=== PATIENT | female | born 1985 | race American Indian/Alaskan Native ===

== ENCOUNTER 2021-04-24 05:45 | Emergency (ER) | payer OTHER ==
[2021-04-24] MEDS ORDERED: ZIPRASIDONE MESYLATE 20 MG VIAL IM ONE (05:47)
--- NOTE | 2021-04-24 05:57 | Emergency Department Report ---
HPI - HPI HPI: This is a 35-year-old -[place] Citizen female presents to the emergency department via EMS from home, which she shares with a friend/roommate, for a mental health evaluation. The patient is also escorted by PD. The patient is exhibiting acute psychosis. She comes into the emergency department singing and sometimes yelling very loudly, with tangential, rambling, nonsensical thoughts and speech. The patient is not redirectable. Her roommate told EMS that the patient has a history of bipolar disorder and she has not been taking her medication. Previous records show that I saw this patient 1 time previously in April of last year for similar odd behavior, acute psychosis, and the patient was transferred to a psychiatric facility. The patient is a poor historian secondary to her current condition. ED Past Medical Hx - Social History Smoking Status: Unknown if ever smoked - Medications Home Medications: Home Medications Medication Instructions Recorded Confirmed Last Taken Type Nitrofurantoin [place]/M-Cryst 100 mg PO Q12HR #12 capsule 04/23/20 Unknown Rx [Macrobid CAP] ED Review of Systems ROS: Stated complaint: MH EVAL Other details as noted in HPI Comment: Unobtainable due to pts medical conditions Physical Exam - Physical Exam Physical Exam: GENERAL: The patient is well-developed well-nourished. HENT: Normocephalic. Atraumatic. Patient has moist mucous membranes. EYES: Extraocular motions are intact. NECK: Supple. Trachea is midline. CHEST/LUNGS: Clear to auscultation. There is no respiratory distress noted. HEART/CARDIOVASCULAR: Regular. There is no tachycardia. There is no murmur. ABDOMEN: Abdomen is soft, nontender. Patient has normal bowel sounds. There is no abdominal distention. SKIN: Skin is warm and dry. NEURO: The patient is awake but confused. Normal gait. Not following commands due to psychosis. No obvious focal or lateralizing deficits. MUSCULOSKELETAL: There is no tenderness or deformity. There is no limitation range of motion. PSYCH: Exhibiting acute psychosis. Singing and/or yelling very loudly. Rambling, tangential, nonsensical thought pattern and speech. ED Course - Reevaluation(s) Reevaluation #1: 04/24/21 05:54 The patient is agitated, singing/yelling, is unable to follow commands and is not redirectable. She was given a dose of Geodon for treatment of her acute psychosis. ED Medical Decision Making - Lab Data Result diagrams: 04/24/21 08:18 04/24/21 16:43 Lab Results 04/24/21 04/24/21 04/24/21 Range/Units 08:17 08:17 08:18 WBC 7.6 (4.5-11.0) K/mm3 RBC 4.21 (3.65-5.03) M/mm3 Hgb 13.6 (10.1-14.3) gm/dl Hct 38.8 (30.3-42.9) % MCV 92 (79-97) fl MCH 32 (28-32) pg MCHC 35 H (30-34) % RDW 14.2 (13.2-15.2) % Plt Count 251 (140-440) K/mm3 Lymph % (Auto) 39.6 H (13.4-35.0) % [place] % (Auto) 10.5 H (0.0-7.3) % Eos % (Auto) 0.9 (0.0-4.3) % Baso % (Auto) 0.1 (0.0-1.8) % Lymph # (Auto) 3.0 (1.2-5.4) K/mm3 [place] # (Auto) 0.8 (0.0-0.8) K/mm3 Eos # (Auto) 0.1 (0.0-0.4) K/mm3 Baso # (Auto) 0.0 (0.0-0.1) K/mm3 Seg Neutrophils % 48.9 (40.0-70.0) % Seg Neutrophils # 3.7 (1.8-7.7) K/mm3 Sodium 139 (137-145) mmol/L Potassium 3.2 L (3.6-5.0) mmol/L Chloride 102.9 (98-107) mmol/L Carbon Dioxide 22 (22-30) mmol/L Anion Gap 17 mmol/L BUN 14 (7-17) mg/dL Creatinine 0.8 (0.6-1.2) mg/dL Estimated GFR > 60 ml/min BUN/Creatinine Ratio 18 % Glucose 120 H (65-100) mg/dL Calcium 9.1 (8.4-10.2) mg/dL Magnesium (1.7-2.3) mg/dL Total Creatine Kinase (30-135) units/L HCG, Qual (Negative) Urine Color (Yellow) Urine Turbidity (Clear) Urine pH (5.0-7.0) Ur Specific [place] (1.003-1.030) Urine Protein (Negative) mg/dL Urine Glucose (UA) (Negative) mg/dL Urine Ketones (Negative) mg/dL Urine Blood (Negative) Urine Nitrite (Negative) Urine Bilirubin (Negative) Urine Urobilinogen (<2.0) mg/dL Ur Leukocyte Esterase (Negative) Urine WBC (Auto) (0.0-6.0) /HPF Urine RBC (Auto) (0.0-6.0) /HPF U Epithel Cells (Auto) (0-13.0) /HPF Urine Bacteria (Auto) (Negative) /HPF Urine Mucus /HPF Salicylates (2.8-20.0) mg/dL Urine Opiates Screen Urine Methadone Screen Acetaminophen (10.0-30.0) ug/mL Ur Barbiturates Screen Ur Phencyclidine Scrn Ur Amphetamines Screen U Benzodiazepines Scrn Urine Cocaine Screen U Marijuana (THC) Screen Drugs of Abuse Note Plasma/Serum Alcohol < 0.01 (0-0.07) % Coronavirus (PCR) (Negative) 04/24/21 04/24/21 04/24/21 Range/Units 08:18 16:43 Unknown WBC (4.5-11.0) K/mm3 RBC (3.65-5.03) M/mm3 Hgb (10.1-14.3) gm/dl Hct (30.3-42.9) % MCV (79-97) fl MCH (28-32) pg MCHC (30-34) % RDW (13.2-15.2) % Plt Count (140-440) K/mm3 Lymph % (Auto) (13.4-35.0) % [place] % (Auto) (0.0-7.3) % Eos % (Auto) (0.0-4.3) % Baso % (Auto) (0.0-1.8) % Lymph # (Auto) (1.2-5.4) K/mm3 [place] # (Auto) (0.0-0.8) K/mm3 Eos # (Auto) (0.0-0.4) K/mm3 Baso # (Auto) (0.0-0.1) K/mm3 Seg Neutrophils % (40.0-70.0) % Seg Neutrophils # (1.8-7.7) K/mm3 Sodium (137-145) mmol/L Potassium 3.6 (3.6-5.0) mmol/L Chloride (98-107) mmol/L Carbon Dioxide (22-30) mmol/L Anion Gap mmol/L BUN (7-17) mg/dL Creatinine (0.6-1.2) mg/dL Estimated GFR ml/min BUN/Creatinine Ratio % Glucose (65-100) mg/dL Calcium (8.4-10.2) mg/dL Magnesium (1.7-2.3) mg/dL Total Creatine Kinase (30-135) units/L HCG, Qual Negative (Negative) Urine Color [place] (Yellow) Urine Turbidity Cloudy (Clear) Urine pH 5.0 (5.0-7.0) Ur Specific [place] 1.029 (1.003-1.030) Urine Protein 30 mg/dl (Negative) mg/dL Urine Glucose (UA) Neg (Negative) mg/dL Urine Ketones 20 (Negative) mg/dL Urine Blood Neg (Negative) Urine Nitrite Neg (Negative) Urine Bilirubin Neg (Negative) Urine Urobilinogen < 2.0 (<2.0) mg/dL Ur Leukocyte Esterase Lg (Negative) Urine WBC (Auto) 18.0 H (0.0-6.0) /HPF Urine RBC (Auto) 8.0 (0.0-6.0) /HPF U Epithel Cells (Auto) 36.0 H (0-13.0) /HPF Urine Bacteria (Auto) 1+ (Negative) /HPF Urine Mucus 2+ /HPF Salicylates (2.8-20.0) mg/dL Urine Opiates Screen Urine Methadone Screen Acetaminophen (10.0-30.0) ug/mL Ur Barbiturates Screen Ur Phencyclidine Scrn Ur Amphetamines Screen U Benzodiazepines Scrn Urine Cocaine Screen U Marijuana (THC) Screen Drugs of Abuse Note Plasma/Serum Alcohol (0-0.07) % Coronavirus (PCR) (Negative) 04/24/21 04/24/21 04/24/21 Range/Units Unknown Unknown Unknown WBC (4.5-11.0) K/mm3 RBC (3.65-5.03) M/mm3 Hgb (10.1-14.3) gm/dl Hct (30.3-42.9) % MCV (79-97) fl MCH (28-32) pg MCHC (30-34) % RDW (13.2-15.2) % Plt Count (140-440) K/mm3 Lymph % (Auto) (13.4-35.0) % [place] % (Auto) (0.0-7.3) % Eos % (Auto) (0.0-4.3) % Baso % (Auto) (0.0-1.8) % Lymph # (Auto) (1.2-5.4) K/mm3 [place] # (Auto) (0.0-0.8) K/mm3 Eos # (Auto) (0.0-0.4) K/mm3 Baso # (Auto) (0.0-0.1) K/mm3 Seg Neutrophils % (40.0-70.0) % Seg Neutrophils # (1.8-7.7) K/mm3 Sodium (137-145) mmol/L Potassium (3.6-5.0) mmol/L Chloride (98-107) mmol/L Carbon Dioxide (22-30) mmol/L Anion Gap mmol/L BUN (7-17) mg/dL Creatinine (0.6-1.2) mg/dL Estimated GFR ml/min BUN/Creatinine Ratio % Glucose (65-100) mg/dL Calcium (8.4-10.2) mg/dL Magnesium 2.10 (1.7-2.3) mg/dL Total Creatine Kinase 1159 H (30-135) units/L HCG, Qual (Negative) Urine Color (Yellow) Urine Turbidity (Clear) Urine pH (5.0-7.0) Ur Specific [place] (1.003-1.030) Urine Protein (Negative) mg/dL Urine Glucose (UA) (Negative) mg/dL Urine Ketones (Negative) mg/dL Urine Blood (Negative) Urine Nitrite (Negative) Urine Bilirubin (Negative) Urine Urobilinogen (<2.0) mg/dL Ur Leukocyte Esterase (Negative) Urine WBC (Auto) (0.0-6.0) /HPF Urine RBC (Auto) (0.0-6.0) /HPF U Epithel Cells (Auto) (0-13.0) /HPF Urine Bacteria (Auto) (Negative) /HPF Urine Mucus /HPF Salicylates < 0.3 L (2.8-20.0) mg/dL Urine Opiates Screen Negative Urine Methadone Screen Negative Acetaminophen (10.0-30.0) ug/mL Ur Barbiturates Screen Negative Ur Phencyclidine Scrn Negative Ur Amphetamines Screen Negative U Benzodiazepines Scrn Negative Urine Cocaine Screen Presumptive positive U Marijuana (THC) Screen Presumptive positive Drugs of Abuse Note Disclamer Plasma/Serum Alcohol (0-0.07) % Coronavirus (PCR) (Negative) 04/24/21 04/24/21 Range/Units Unknown Unknown WBC (4.5-11.0) K/mm3 RBC (3.65-5.03) M/mm3 Hgb (10.1-14.3) gm/dl Hct (30.3-42.9) % MCV (79-97) fl MCH (28-32) pg MCHC (30-34) % RDW (13.2-15.2) % Plt Count (140-440) K/mm3 Lymph % (Auto) (13.4-35.0) % [place] % (Auto) (0.0-7.3) % Eos % (Auto) (0.0-4.3) % Baso % (Auto) (0.0-1.8) % Lymph # (Auto) (1.2-5.4) K/mm3 [place] # (Auto) (0.0-0.8) K/mm3 Eos # (Auto) (0.0-0.4) K/mm3 Baso # (Auto) (0.0-0.1) K/mm3 Seg Neutrophils % (40.0-70.0) % Seg Neutrophils # (1.8-7.7) K/mm3 Sodium (137-145) mmol/L Potassium (3.6-5.0) mmol/L Chloride (98-107) mmol/L Carbon Dioxide (22-30) mmol/L Anion Gap mmol/L BUN (7-17) mg/dL Creatinine (0.6-1.2) mg/dL Estimated GFR ml/min BUN/Creatinine Ratio % Glucose (65-100) mg/dL Calcium (8.4-10.2) mg/dL Magnesium (1.7-2.3) mg/dL Total Creatine Kinase (30-135) units/L HCG, Qual (Negative) Urine Color (Yellow) Urine Turbidity (Clear) Urine pH (5.0-7.0) Ur Specific [place] (1.003-1.030) Urine Protein (Negative) mg/dL Urine Glucose (UA) (Negative) mg/dL Urine Ketones (Negative) mg/dL Urine Blood (Negative) Urine Nitrite (Negative) Urine Bilirubin (Negative) Urine Urobilinogen (<2.0) mg/dL Ur Leukocyte Esterase (Negative) Urine WBC (Auto) (0.0-6.0) /HPF Urine RBC (Auto) (0.0-6.0) /HPF U Epithel Cells (Auto) (0-13.0) /HPF Urine Bacteria (Auto) (Negative) /HPF Urine Mucus /HPF Salicylates (2.8-20.0) mg/dL Urine Opiates Screen Urine Methadone Screen Acetaminophen 5.0 L (10.0-30.0) ug/mL Ur Barbiturates Screen Ur Phencyclidine Scrn Ur Amphetamines Screen U Benzodiazepines Scrn Urine Cocaine Screen U Marijuana (THC) Screen Drugs of Abuse Note Plasma/Serum Alcohol (0-0.07) % Coronavirus (PCR) Negative (Negative) - Medical Decision Making This patient presented at about 5:45 AM, just prior to shift change between the overnight and morning physicians. The patient is obviously exhibiting signs of acute psychosis. She has a rambling, tangential, nonsensical thought pattern and speech. The patient is heard singing and/or yelling, oftentimes at the top of her lungs, and is not redirectable. She is unable to follow commands secondary to her psychosis and current mental health condition. I have seen the patient ambulatory, moving all of her extremities, and her speech does not appear slurred. A 1013 has been signed and the patient has been placed on an ED hold. She has been given a dose of Geodon for treatment of the acute psychosis and to assist with the rest of her medical clearance and evaluation. We do not yet have blood or urine for laboratory studies and/or medical clearance. We need to get a full set of vitals on this patient. This case will be signed out to the oncoming physician, Dr Rodriguez, to follow the lab results, the vital signs, and make sure that the patient can be medically cleared. 04/26/21 10A: I reviewed the patient's labs. There is a urinary tract infection and one of my colleagues have started the patient on Bactrim DS. There is an elevation in the CK level with the patient does not appear to be in rhabdomyolysis. No renal insufficiency. Initially she had some mild hypokalemia and was given potassium chloride and now the potassium level is within normal limits. The patient is medically cleared for psychiatric placement. Critical Care Time: No Critical care attestation.: If time is entered above; I have spent that time in minutes in the direct care of this critically ill patient, excluding procedure time. ED Disposition Clinical Impression: Acute psychosis, Medical clearance for psychiatric admission Disposition: [id number]/[id number] PSY HOSP/PSY UNIT Is pt being admited?: No
[2021-04-24 08:44] LABS: Basophils % (Auto) 0.1 % (0.0-1.8); Eosinophils # (Auto) 0.1 K/mm3 (0.0-0.4); Eosinophils % (Auto) 0.9 % (0.0-4.3); Hematocrit 38.8 % (30.3-42.9); Hemoglobin 13.6 gm/dl (10.1-14.3); Lymphocytes % (Auto) 39.6 % (13.4-35.0); Mean Corpuscular HGB Conc 35 % (30-34); Mean Corpuscular Volume 92 fl (79-97); Monocytes # (Auto) 0.8 K/mm3 (0.0-0.8); Monocytes % (Auto) 10.5 % (0.0-7.3); Platelet Count 251 K/mm3 (140-440); Red Blood Count 4.21 M/mm3 (3.65-5.03); Red Cell Distribution Width 14.2 % (13.2-15.2)
[2021-04-24 09:06] LABS: BUN/Creatinine Ratio 18; Blood Urea Nitrogen 14 mg/dL (7-17); Calcium 9.1 mg/dL (8.4-10.2); Hemolysis Index 2
--- NOTE | 2021-04-24 09:53 | Consultation ---
History of Present Illness - Reason for Consult Consult date: 04/24/21 Reason for consult: MHE Requesting physician: RITIKA RED - History of Present Psychiatric Illness Per ED Provider: This is a 35-year-old -[place] female presents to the emergency department via EMS from home, which she shares with a friend/roommate, for a mental health evaluation. The patient is also escorted by PD. The patient is exhibiting acute psychosis. She comes into the emergency department singing and sometimes yelling very loudly, with tangential, rambling, nonsensical thoughts and speech. The patient is not redirectable. Her roommate told EMS that the patient has a history of bipolar disorder and she has not been taking her medication. Previous records show that I saw this patient 1 time previously in April of last year for similar odd behavior, acute psychosis, and the patient was transferred to a psychiatric facility. The patient is a poor historian secondary to her current condition. PSYCH HPI Patient is a single currently unemployed -[place] female with past psychiatric history of schizophrenia who presented to the ED after her roommates called the police with concerns of agitated and aggressive behavior. Paramedics report patient has not been compliant with her medications. Patient stated she did not really do anything that she was just seen in room laying in bed when the police came around, she endorses marijuana use but denies any other illicit drug use. She says other than that she does not know why she is here. SHe admits to not taking meds because she does not have any at the moment PAST PSYCHIATRIC HISTORY Diagnoses: Schizophrenia Suicide attempts or Self-harm behavior: n/a Prior psychiatric hospitalizations: n/a Substance Abuse history: n/a Previous psychiatric medications tried: n/a Outpatient treatment: n/a PAST MEDICAL HISTORY: Family Psychiatric History: None reported or documented SOCIAL HISTORY Marital Status: single Living Arrangements: rent Employment Status: n/a Access to guns/weapons: n/a Education: n/a History of Abuse: n/a Legal History: n/a REVIEW OF SYSTEMS ROS cannot be reliably obtained from the patient due to her confusion MENTAL STATUS EXAMINATION General Appearance and Behavior: Age appropriate, good hygiene, actively taking off clothes, lying in bed, good eye contact, uncooperative with questioning and irritable Cooperation: Threatening Psychomotor Behavior: Psychomotor agitation Mood: n/a Affect and affective range: Angry Thought Process: Tangential, Circumstantial, Illogical, and pressured Thought Content: Obsessions, Flight of ideas, Illogical, Grandiose, Ideas of reference, Paranoid Speech: Pressured, loud volume Intellectual Functioning: Average Suicidal Ideation: N/a Homicidal Ideation: N/a Impulse Control: Unimpaired Insight and Judgment: Limited insight and judgment, Impaired Memory: N/a Attention: Divided attention impaired Orientation: Alert, but confused RECOMMENDATIONS MEDICATIONS: will start meds Risks, benefits and alternatives of medications discussed with the patient, questions answered and consent obtained from patient. PSYCHOTHERAPY: Supportive psychotherapy provided MEDICAL: Per primary team DELIRIUM PRECAUTIONS: Please re-orient patient frequently, keep lights on during the day, and minimize benzodiazepines and opiates as these medications could worsen patient's confusion. EXTRUSION PRESS ADJUSTER: Per Medical team DISPOSITION: Indication for acute inpatient psychiatric hospitalization at this time LEGAL STATUS: 1013 FOLLOW-UP: Will follow Thank you for the consult. Please contact with any questions and/or concerns. Medications and Allergies Allergies Allergy/AdvReac Type Severity Reaction Status Date / Time No Known Allergies Allergy Unverified 04/24/21 10:42 Home Medications Medication Instructions Recorded Confirmed Last Taken Type Nitrofurantoin [place]/M-Cryst 100 mg PO Q12HR #12 capsule 04/23/20 Unknown Rx [Macrobid CAP] Mental Status Exam - Vital signs Last Vital Signs Temp 98.6 F 04/24/21 08:15 Pulse 65 04/24/21 08:15 Resp 18 04/24/21 08:15 BP 129/99 04/24/21 08:15 Pulse Ox 98 04/24/21 08:15 Results Result Diagrams: 04/24/21 08:18 04/24/21 08:17 Abnormal lab results 04/24/21 04/24/21 Range/Units 08:17 08:18 MCHC 35 H (30-34) % Lymph % (Auto) 39.6 H (13.4-35.0) % [place] % (Auto) 10.5 H (0.0-7.3) % Potassium 3.2 L (3.6-5.0) mmol/L Glucose 120 H (65-100) mg/dL All other labs normal.
[2021-04-24] MEDS ORDERED: POTASSIUM CHLORIDE ER 20 MEQ TAB PO ONE (10:26)
[2021-04-24 10:32] LABS: Bacteria,Urine 1+ /HPF (Negative); Bilirubin,Urine NEG (Negative); Blood,Urine NEG (Negative); Color,Urine Amber (Yellow); Mucus,Urine 2+ /HPF; Urobilinogen,Urine < 2.0 mg/dL (<2.0)
[2021-04-24 10:34] LABS: Amphetamine Screen,Urine Negative; Benzodiazepines Screen,Urine Negative; Methadone Screen,Urine Negative; Opiate Screen,Urine Negative
[2021-04-24 10:55] LABS: Cannabinoid Screen,Urine PRESUMPTIVE POSITIVE; Cocaine Screen,Urine PRESUMPTIVE POSITIVE
[2021-04-24] MEDS ORDERED: SODIUM CHLORIDE 0.9% 1000 ML 1,000 ML IV ONE ×2 (11:08)
[2021-04-24] MEDS ORDERED: cefTRIAXone/NS 1 GM/50 ML 1 GM/50 ML BAG IV ONE (11:09)
[2021-04-24] MEDS ORDERED: diphenhydrAMINE 25 MG CAP PO PRN (11:15)
[2021-04-24] MEDS ORDERED: ACETAMINOPHEN 325 MG TAB PO PRN (11:15)
--- NOTE | 2021-04-24 11:18 | Event Note ---
Date: 04/24/21 Vital signs, laboratory studies, psychiatric recommendations reviewed and appreciated, and prior ER documentation reviewed and appreciated. Patient sitting comfortably in chair, and in no acute distress. She will be started on potassium supplementation. Elevated CK minimal at this time, given young age, normal renal function, this should decrease on its own with rest, and copious oral hydration. Urinalysis appears to be contaminated. Given young age, contaminated urine sample, I would not initiate antibiotics at this time. Psychiatric recommendations reviewed and appreciated. Patient remains medically suitable for psychiatric placement, consultation and disposition at this time. She does not appear to have an emergent medical co ndition that would preclude psychiatric placement. Vital Signs 04/24/21 04/24/21 06:24 08:15 Temperature 98.1 F 98.6 F Pulse Rate 73 65 Respiratory 16 18 Rate Blood Pressure 114/69 129/99 [Left] O2 Sat by Pulse 100 98 Oximetry Lab Results 04/24/21 04/24/21 04/24/21 Range/Units 08:17 08:17 08:18 WBC 7.6 (4.5-11.0) K/mm3 RBC 4.21 (3.65-5.03) M/mm3 Hgb 13.6 (10.1-14.3) gm/dl Hct 38.8 (30.3-42.9) % MCV 92 (79-97) fl MCH 32 (28-32) pg MCHC 35 H (30-34) % RDW 14.2 (13.2-15.2) % Plt Count 251 (140-440) K/mm3 Lymph % (Auto) 39.6 H (13.4-35.0) % [place] % (Auto) 10.5 H (0.0-7.3) % Eos % (Auto) 0.9 (0.0-4.3) % Baso % (Auto) 0.1 (0.0-1.8) % Lymph # (Auto) 3.0 (1.2-5.4) K/mm3 [place] # (Auto) 0.8 (0.0-0.8) K/mm3 Eos # (Auto) 0.1 (0.0-0.4) K/mm3 Baso # (Auto) 0.0 (0.0-0.1) K/mm3 Seg Neutrophils % 48.9 (40.0-70.0) % Seg Neutrophils # 3.7 (1.8-7.7) K/mm3 Sodium 139 (137-145) mmol/L Potassium 3.2 L (3.6-5.0) mmol/L Chloride 102.9 (98-107) mmol/L Carbon Dioxide 22 (22-30) mmol/L Anion Gap 17 mmol/L BUN 14 (7-17) mg/dL Creatinine 0.8 (0.6-1.2) mg/dL Estimated GFR > 60 ml/min BUN/Creatinine Ratio 18 % Glucose 120 H (65-100) mg/dL Calcium 9.1 (8.4-10.2) mg/dL Magnesium (1.7-2.3) mg/dL Total Creatine Kinase (30-135) units/L HCG, Qual (Negative) Urine Color (Yellow) Urine Turbidity (Clear) Urine pH (5.0-7.0) Ur Specific [place] (1.003-1.030) Urine Protein (Negative) mg/dL Urine Glucose (UA) (Negative) mg/dL Urine Ketones (Negative) mg/dL Urine Blood (Negative) Urine Nitrite (Negative) Urine Bilirubin (Negative) Urine Urobilinogen (<2.0) mg/dL Ur Leukocyte Esterase (Negative) Urine WBC (Auto) (0.0-6.0) /HPF Urine RBC (Auto) (0.0-6.0) /HPF U Epithel Cells (Auto) (0-13.0) /HPF Urine Bacteria (Auto) (Negative) /HPF Urine Mucus /HPF Salicylates (2.8-20.0) mg/dL Urine Opiates Screen Urine Methadone Screen Acetaminophen (10.0-30.0) ug/mL Ur Barbiturates Screen Ur Phencyclidine Scrn Ur Amphetamines Screen U Benzodiazepines Scrn Urine Cocaine Screen U Marijuana (THC) Screen Drugs of Abuse Note Plasma/Serum Alcohol < 0.01 (0-0.07) % 04/24/21 04/24/21 04/24/21 Range/Units 08:18 Unknown Unknown WBC (4.5-11.0) K/mm3 RBC (3.65-5.03) M/mm3 Hgb (10.1-14.3) gm/dl Hct (30.3-42.9) % MCV (79-97) fl MCH (28-32) pg MCHC (30-34) % RDW (13.2-15.2) % Plt Count (140-440) K/mm3 Lymph % (Auto) (13.4-35.0) % [place] % (Auto) (0.0-7.3) % Eos % (Auto) (0.0-4.3) % Baso % (Auto) (0.0-1.8) % Lymph # (Auto) (1.2-5.4) K/mm3 [place] # (Auto) (0.0-0.8) K/mm3 Eos # (Auto) (0.0-0.4) K/mm3 Baso # (Auto) (0.0-0.1) K/mm3 Seg Neutrophils % (40.0-70.0) % Seg Neutrophils # (1.8-7.7) K/mm3 Sodium (137-145) mmol/L Potassium (3.6-5.0) mmol/L Chloride (98-107) mmol/L Carbon Dioxide (22-30) mmol/L Anion Gap mmol/L BUN (7-17) mg/dL Creatinine (0.6-1.2) mg/dL Estimated GFR ml/min BUN/Creatinine Ratio % Glucose (65-100) mg/dL Calcium (8.4-10.2) mg/dL Magnesium (1.7-2.3) mg/dL Total Creatine Kinase (30-135) units/L HCG, Qual Negative (Negative) Urine Color [place] (Yellow) Urine Turbidity Cloudy (Clear) Urine pH 5.0 (5.0-7.0) Ur Specific [place] 1.029 (1.003-1.030) Urine Protein 30 mg/dl (Negative) mg/dL Urine Glucose (UA) Neg (Negative) mg/dL Urine Ketones 20 (Negative) mg/dL Urine Blood Neg (Negative) Urine Nitrite Neg (Negative) Urine Bilirubin Neg (Negative) Urine Urobilinogen < 2.0 (<2.0) mg/dL Ur Leukocyte Esterase Lg (Negative) Urine WBC (Auto) 18.0 H (0.0-6.0) /HPF Urine RBC (Auto) 8.0 (0.0-6.0) /HPF U Epithel Cells (Auto) 36.0 H (0-13.0) /HPF Urine Bacteria (Auto) 1+ (Negative) /HPF Urine Mucus 2+ /HPF Salicylates (2.8-20.0) mg/dL Urine Opiates Screen Negative Urine Methadone Screen Negative Acetaminophen (10.0-30.0) ug/mL Ur Barbiturates Screen Negative Ur Phencyclidine Scrn Negative Ur Amphetamines Screen Negative U Benzodiazepines Scrn Negative Urine Cocaine Screen Presumptive positive U Marijuana (THC) Screen Presumptive positive Drugs of Abuse Note Disclamer Plasma/Serum Alcohol (0-0.07) % 04/24/21 04/24/21 04/24/21 Range/Units Unknown Unknown Unknown WBC (4.5-11.0) K/mm3 RBC (3.65-5.03) M/mm3 Hgb (10.1-14.3) gm/dl Hct (30.3-42.9) % MCV (79-97) fl MCH (28-32) pg MCHC (30-34) % RDW (13.2-15.2) % Plt Count (140-440) K/mm3 Lymph % (Auto) (13.4-35.0) % [place] % (Auto) (0.0-7.3) % Eos % (Auto) (0.0-4.3) % Baso % (Auto) (0.0-1.8) % Lymph # (Auto) (1.2-5.4) K/mm3 [place] # (Auto) (0.0-0.8) K/mm3 Eos # (Auto) (0.0-0.4) K/mm3 Baso # (Auto) (0.0-0.1) K/mm3 Seg Neutrophils % (40.0-70.0) % Seg Neutrophils # (1.8-7.7) K/mm3 Sodium (137-145) mmol/L Potassium (3.6-5.0) mmol/L Chloride (98-107) mmol/L Carbon Dioxide (22-30) mmol/L Anion Gap mmol/L BUN (7-17) mg/dL Creatinine (0.6-1.2) mg/dL Estimated GFR ml/min BUN/Creatinine Ratio % Glucose (65-100) mg/dL Calcium (8.4-10.2) mg/dL Magnesium 2.10 (1.7-2.3) mg/dL Total Creatine Kinase 1159 H (30-135) units/L HCG, Qual (Negative) Urine Color (Yellow) Urine Turbidity (Clear) Urine pH (5.0-7.0) Ur Specific [place] (1.003-1.030) Urine Protein (Negative) mg/dL Urine Glucose (UA) (Negative) mg/dL Urine Ketones (Negative) mg/dL Urine Blood (Negative) Urine Nitrite (Negative) Urine Bilirubin (Negative) Urine Urobilinogen (<2.0) mg/dL Ur Leukocyte Esterase (Negative) Urine WBC (Auto) (0.0-6.0) /HPF Urine RBC (Auto) (0.0-6.0) /HPF U Epithel Cells (Auto) (0-13.0) /HPF Urine Bacteria (Auto) (Negative) /HPF Urine Mucus /HPF Salicylates < 0.3 L (2.8-20.0) mg/dL Urine Opiates Screen Urine Methadone Screen Acetaminophen 5.0 L (10.0-30.0) ug/mL Ur Barbiturates Screen Ur Phencyclidine Scrn Ur Amphetamines Screen U Benzodiazepines Scrn Urine Cocaine Screen U Marijuana (THC) Screen Drugs of Abuse Note Plasma/Serum Alcohol (0-0.07) %
[2021-04-24] MEDS ORDERED: POTASSIUM CHLORIDE 10 MEQ 10 MEQ/100 ML BAG IV SCH (12:00)
[2021-04-24] MEDS: VALPROIC ACID 250 MG/5 ML ORAL LIQD PO SCH ×2 (12:26→23:20)
[2021-04-24] MEDS: SULFAMETHOXAZOLE/TRIMETHOPRIM 800/160MG DS TAB PO SCH ×2 (12:36→23:20)
[2021-04-24] MEDS: LORazepam 2 MG/ML VIAL IM PRN (14:14)
[2021-04-24] MEDS ORDERED: QUEtiapine 25 MG TAB PO SCH (22:00)
[2021-04-24] MEDS: QUEtiapine 200 MG TAB PO SCH (23:20)
--- NOTE | 2021-04-25 10:21 | Event Note ---
S: "I feel amazing,." O: Stable vital signs, A: Patient is medically clear for psychiatric care P: Awaiting treatment recommendations from mental health team
[2021-04-25] MEDS: POTASSIUM CHLORIDE ER 20 MEQ TAB PO SCH (10:28)
[2021-04-25] MEDS: SULFAMETHOXAZOLE/TRIMETHOPRIM 800/160MG DS TAB PO SCH ×2 (10:28→22:00)
[2021-04-25] MEDS: VALPROIC ACID 250 MG/5 ML ORAL LIQD PO SCH ×2 (10:28→22:02)
[2021-04-25] MEDS: QUEtiapine 200 MG TAB PO SCH ×2 (22:01)
[2021-04-25] MEDS: LORazepam 2 MG/ML VIAL IM PRN (22:56)
--- NOTE | 2021-04-26 10:01 | Event Note ---
Date: 04/26/21 This patient is well-known to me as I have seen her in the past and I was the initial physician upon her presentation. She presented with acute psychosis. She had rambling, tangential thoughts and speech. She was singing and dancing and was not redirectable. The ER psychiatric nurse states that the patient has been calm throughout this morning and she was not signed out any issues or events overnight. It appears that she has been seen by the psychiatric PA this morning but their note and recommendations are not yet in the chart. Currently she is a 1013 and ED hold for inpatient stabilization. Psychiatric and home medications have been reconciled. Vital signs from this morning are reassuring including being afebrile. We will continue to monitor this patient during her ED course. Vital Signs - 24 hr 04/25/21 04/26/21 04/26/21 19:35 06:10 08:43 Temperature 98.8 F 98.3 F 97.8 F Pulse Rate 76 88 93 H Respiratory 18 18 20 Rate Blood Pressure 104/53 105/76 125/76 [Left] O2 Sat by Pulse 99 100 98 Oximetry
[2021-04-26] MEDS: SULFAMETHOXAZOLE/TRIMETHOPRIM 800/160MG DS TAB PO SCH ×2 (10:06→22:58)
[2021-04-26] MEDS: VALPROIC ACID 250 MG/5 ML ORAL LIQD PO SCH ×2 (10:06→22:58)
[2021-04-26] MEDS: POTASSIUM CHLORIDE ER 20 MEQ TAB PO SCH (10:06)
--- NOTE | 2021-04-26 16:05 | Emergency Department Report ---
Blank Doc - Documentation Documentation: The patient initially had an elevated CK level of about 1100. This is most li adrianna secondary to cocaine use and the manic state in which she presented. The patient had a repeat CK level today that came down to about 880. The patient's urinalysis does not show any signs of myoglobinuria. The patient does not have any renal insufficiency. She does not appear to have any rhabdomyolysis. The patient will be offered some IV fluid resuscitation, but it usually takes a few days for the CK level to go down. I still consider this patient to be medically cleared for psychiatric placement.
[2021-04-26] MEDS: QUEtiapine 200 MG TAB PO SCH (22:58)
[2021-04-27 09:24] LABS: Bilirubin,Urine NEG (Negative); Blood,Urine NEG (Negative); Color,Urine Yellow (Yellow); Mucus,Urine 1+ /HPF
[2021-04-27 09:36] VITALS: BP 124/90
[2021-04-27] MEDS: VALPROIC ACID 250 MG/5 ML ORAL LIQD PO SCH (10:16)
[2021-04-27] MEDS: SULFAMETHOXAZOLE/TRIMETHOPRIM 800/160MG DS TAB PO SCH (10:16)
[2021-04-27] MEDS: POTASSIUM CHLORIDE ER 20 MEQ TAB PO SCH (10:16)
--- NOTE | 2021-04-27 10:20 | Event Note ---
Date: 04/27/21 This patient remains in the emergency department as a 1013 and for inpatient stabilization secondary to acute psychosis. At the time of my examination this morning she is calm and cooperative. I spoke to the emergency department psychiatric nurse who says that there have been no events or issues reported from overnight. She is currently under examination for acceptance by [facility]. The patient previously had elevated CK levels that are trending downwards. I have ordered another CK level to show that it continues to trend downwards and that the patient does not have acute rhabdomyolysis. Vital signs over the past 24 hours, listed below, are reassuring including being afebrile. Medications have been reconciled for this patient. We will continue to monitor her during her ED course. Vital Signs 04/24/21 04/24/21 04/24/21 06:24 08:15 14:54 Temperature 98.1 F 98.6 F Pulse Rate 73 65 Respiratory 16 18 17 Rate Blood Pressure 114/69 129/99 [Left] O2 Sat by Pulse 100 98 Oximetry 04/24/21 04/25/21 04/25/21 20:19 02:54 07:57 Temperature 98.1 F 98 F 97.9 F Pulse Rate 79 76 90 Respiratory 18 18 18 Rate Blood Pressure 100/60 102/62 120/80 [Left] O2 Sat by Pulse 100 100 100 Oximetry 04/25/21 04/26/21 04/26/21 19:35 06:10 08:43 Temperature 98.8 F 98.3 F 97.8 F Pulse Rate 76 88 93 H Respiratory 18 18 20 Rate Blood Pressure 104/53 105/76 125/76 [Left] O2 Sat by Pulse 99 100 98 Oximetry 04/26/21 04/26/21 04/27/21 20:00 20:36 02:30 Temperature 98.5 F 98.6 F Pulse Rate 70 65 Respiratory 16 16 16 Rate Blood Pressure 109/77 104/67 [Left] O2 Sat by Pulse 100 98 100 Oximetry 04/27/21 09:35 Temperature 98.6 F Pulse Rate 80 Respiratory 20 Rate Blood Pressure 124/90 [Left] O2 Sat by Pulse 100 Oximetry
--- NOTE | 2021-04-27 12:08 | Progress Note ---
Subjective - Reason for Consult Consult date: 04/27/21 Reason for consult: psychosis - Chief Complaint Chief complaint: The patient was seen today, she is comical and sarcastic at times. She is calm and cooperative. She says her neighbors called the integrated pest management technician on her because the said she was being disruptive. The patient says she gets [facility] for [facility], Bipolar and Depression, but she denies taking any psych medications. She says she takes herbs. She denies SI/HI, or any fear or feelings of endangerment. The patient says she lives a lone but has family in [place]. She denies hallucinations of any kind. The nurse did report that the patient was talking to herself when she first came in, but denies any recent behavioral disturbances or A/V. REVIEW OF SYSTEMS Constitutional: Negative for weight loss ENT: Negative for stridor Respiratory: Negative for cough or hemoptysis All other systems reviewed and are negative MENTAL STATUS EXAMINATION General Appearance and Behavior: Age appropriate, good hygiene, actively taking off clothes, lying in bed, good eye contact, cooperative with questioning and irritable Cooperation: cooperative Psychomotor Behavior: Psychomotor agitation Mood: Fine Affect and affective range: congruent with stated mood Thought Process: goal directed Thought Content: None Speech: Normal tone and pace Intellectual Functioning: Average Suicidal Ideation: Denies Homicidal Ideation: Denies Impulse Control: Unimpaired Insight and Judgment: Limited insight and judgment, Impaired Memory: Limited Attention: Undivided attention impaired Orientation: Alert, oriented Assessment: (1) Bipolar Disorder (2) Cocaine Dependence RECOMMENDATIONS d/c 1013 Risks, benefits and alternatives of medications discussed with the patient, questions answered and consent obtained from patient. PSYCHOTHERAPY: Supportive psychotherapy provided MEDICAL: Per primary team DELIRIUM PRECAUTIONS: Please re-orient patient frequently, keep lights on during the day, and minimize benzodiazepines and opiates as these medications could worsen patient's confusion. ELECTRICAL DESIGNER DRAFTER: Per Medical team DISPOSITION: Do note recommend for acute inpatient psychiatric hospitalization at this time. The patient understands that if any fear or feelings of endangerment she should seek immediate assistance including 911/ER and crisis hotline. FOLLOW-UP: Will sign off The patient to abstain from all illicit drug use The patient to follow up with outpatient psych in 7 to 14 days upon discharge The [facility] to give the patient outpatient resources and drug rehab The patient to abstain from all illicit drug use The [facility] to further discuss and document safety plan Thank you for the consult. Please contact with any questions and/or concerns. Mental Status Exam - Vital signs Last Vital Signs Temp 98.6 F 04/27/21 09:35 Pulse 80 04/27/21 09:35 Resp 20 04/27/21 09:35 BP 124/90 04/27/21 09:35 Pulse Ox 100 04/27/21 09:35
== END 2021-04-27 13:35 ==
LOC: ED 05:45
DX: F29 Unspecified psychosis not due to a substance or known physiological condition (principal); Z20.822 Contact with and (suspected) exposure to COVID-19; Z04.6 Encounter for general psychiatric examination, requested by authority; Z79.899 Other long term (current) drug therapy
CPT/HCPCS: 36415; 80048; 80307; 81001; 82550; 83735; 84132; 84703; 85025; 87086; 96372; 99285; J2060; J3486; U0003; 80320; G0480